=== PATIENT | female | born 1955 | race Caucasian/White ===

== ENCOUNTER 2018-05-17 19:25 | Emergency (ER) | payer OTHER ==
[~2018-05-17] VITALS: Ht 170.2 cm; Wt 81.6 kg
[~2018-05-17 19:25] MED LIST: HYDR1TAB10 PO; IBUP400T18 PO
--- NOTE | 2018-05-17 20:16 | ED.ADGEN ---
Past History Past Medical History: No Pertinent History Past Surgical History: Hysterectomy, Tonsillectomy Alcohol Use: Occasionally Drug Use: None Adult General Chief Complaint Chief Complaint " ... All of sudden... I got really weak... and dizzy... I felt short of breath.. just feel really bad....",," I then started having tingle and numbness in both hand and my feet..."..." I better now..." HPI HPI Patient is a 62 year old female who presents with above hx and complaints of malaise, dyspnea, nausea and and dizziness. She denies any changes in meds, travel, specific ill contacts, intake bad food, or trauma.. Patient is very anxious. No previous history of acute NC or DVT. Patient reports no changes in bowel habits. Patient denies any changes in urination. Patient states she does have a past history of anxiety. Review of Systems Review of Systems Constitutional: Denies fever or chills [] Eyes: Denies change in visual acuity, redness, or eye pain [] HENT: Denies nasal congestion or sore throat [] Respiratory: Complains of dyspnea Cardiovascular: No additional information not addressed in HPI [] GI: Complaints of abdominal pain, nausea, vomiting,. Denies bloody stools or diarrhea [] : Denies dysuria or hematuria [] Musculoskeletal: Denies back pain or joint pain [] Integument: Denies rash or skin lesions [] Neurologic: Complains of headache, complains of generalized weakness Endocrine: Denies polyuria or polydipsia [] All other systems were reviewed and found to be within normal limits, except as documented in this note. Family History Family History Noncontributory Current Medications Current Medications Current Medications Medications (Trade) Dose Ordered Sig/[place] Start Time Stop Time Status Last Admin Dose Admin Aspirin (Ching Aspirin) 325 mg 1X ONCE 05/17/18 23:45 05/18/18 00:02 DC 05/17/18 23:48 325 MG See nursing for home medications Allergies Allergies Allergies Coded Allergies Type Severity Reaction Last Updated Verified NSAIDS (Non-Steroidal Anti-Inflamma Allergy Unknown 05/17/18 Yes Physical Exam Physical Exam Constitutional: Moderate distress, non-toxic appearance. [] HENT: Normocephalic, atraumatic, bilateral external ears normal, oropharynx moist, no oral exudates, nose normal. [] Eyes: PERRLA, EOMI, conjunctiva normal, no discharge. [] Neck: Normal range of motion, no tenderness, supple, no stridor. [] Cardiovascular:Heart rate regular rhythm, no murmur [] Lungs & Thorax: Bilateral breath sounds equal apex auscultation [] Abdomen: Bowel sounds normal, soft, no tenderness, no masses, no pulsatile masses. Distended. Old surgery scar. Skin: Warm, dry, no erythema, no rash. [] Back: No tenderness, no CVA tenderness. [] Extremities: No tenderness, no cyanosis, no clubbing, ROM intact, no edema. [] No cording appreciated Neurologic: Alert and oriented X 3, normal motor function, normal sensory function, no focal deficits noted. []DTRs are +2 at patella and brachial. 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 No drift. Ambulatory without problems. Psychologic: Affect anxious, judgement normal, mood normal. [] Current Patient Data Vital Signs Vital Signs Date Time Temp Pulse Resp B/P (MAP) Pulse Ox O2 Delivery O2 Flow Rate FiO2 05/18/18 01:00 98.3 77 13 145/74 (97) 96 Room Air Lab Results Laboratory Tests Test 05/17/18 20:33 05/18/18 00:02 White Blood Count 6.3 x10^3/uL (4.0-11.0) Red Blood Count 4.98 x10^6/uL (3.50-5.40) Hemoglobin 14.6 g/dL (12.0-15.5) Hematocrit 43.0 % (36.0-47.0) Mean Corpuscular Volume 86 fL (79-100) Mean Corpuscular Hemoglobin 29 pg (25-35) Mean Corpuscular Hemoglobin Concent 34 g/dL (31-37) Red Cell Distribution Width 14.1 % (11.5-14.5) Platelet Count 380 x10^3/uL (140-400) Neutrophils (%) (Auto) 50 % (31-73) Lymphocytes (%) (Auto) 39 % (24-48) Monocytes (%) (Auto) 7 % (0-9) Eosinophils (%) (Auto) 3 % (0-3) Basophils (%) (Auto) 0 % (0-3) Neutrophils # (Auto) 3.2 x10^3uL (1.8-7.7) Lymphocytes # (Auto) 2.5 x10^3/uL (1.0-4.8) Monocytes # (Auto) 0.5 x10^3/uL (0.0-1.1) Eosinophils # (Auto) 0.2 x10^3/uL (0.0-0.7) Basophils # (Auto) 0.0 x10^3/uL (0.0-0.2) Prothrombin Time 9.5 SEC (9.4-11.4) Prothrombin Time INR 0.9 (0.9-1.1) PTT 22 SEC (23-33) L D-Dimer (June) 0.43 mg/L (0.00-0.50) Sodium Level 143 mmol/L (136-145) Potassium Level 4.0 mmol/L (3.5-5.1) Chloride Level 107 mmol/L (98-107) Carbon Dioxide Level 28 mmol/L (21-32) Anion Gap 8 (6-14) Blood Urea Nitrogen 10 mg/dL (7-20) Creatinine 0.9 mg/dL (0.6-1.0) Estimated GFR (Cockcroft-Gault) 63.0 Glucose Level 134 mg/dL (70-99) H Calcium Level 9.0 mg/dL (8.5-10.1) Troponin I Quantitative < 0.017 ng/mL (0-0.055) YC-Awf-J-Type Natriuretic Peptide 65 pg/mL (0-124) POC Troponin I 0.00 ng/ml (<0.08) EKG EKG My interpretation of EKG shows sinus rhythm at 85 bpm. There is some anterior septal contour changes. But no findings acute STEMI of contralateral changes. EKG my interpretation shows a sinus rhythm at 75 bpm. No acute morphology changes from prior EKG[] Radiology/Procedures Radiology/Procedures My interpretation of acute abdomen film shows no free air in the diaphragm. No acute cardiopulmonary findings. Abdomen film shows increased stool in colon. Some mild degenerative joint changes.[] My interpretation CT of head shows no shift, mass, edema, bleed, or fracture. Does have generalized atrophy. See formal report when available Course & Med Decision Making Course & Med Decision Making Pertinent Labs and Imaging studies reviewed. (See chart for details) Discussed options for further evaluation of patient patient declines admission at this time. Patient states she may have had anxiety episode. Patient will follow-up with her primary care. Patient return if any concerns. [] Final Impression Final Impression 1. Suspect hyperventilation. 2. History of anxiety 3. Hx. of [place] 4. Dizzy Dragon Disclaimer Dragon Disclaimer This electronic medical record was generated, in whole or in part, using a voice recognition dictation system. MARIELLE BOLIVAR MD May 17, 2018 20:16
--- NOTE | 2018-05-17 20:31 | RAD ---
CT scan of the head without contrast 05/17/2018 Clinical History: Numbness and tingling bilaterally since earlier today. Weakness. Technique: Unenhanced, contiguous, 5 mm axial sections were obtained through the head. One or more of the following individualized dose reduction techniques were utilized for this study: 1. Automated exposure control. 2. Adjustment of the mA and/or kV according to patient size. 3. Use of iterative reconstruction technique. Findings: No previous imaging studies are available for comparison. There is mild generalized parenchymal atrophy. No acute parenchymal abnormality is seen. No extra-axial fluid collection is noted. No skull fracture is seen. Impression: No acute intracranial abnormality is seen. Electronically signed by: Yazan Barron MD (05/17/2018 8:27 PM) [facility]
[2018-05-17 21:10] LABS: BASO % 0 % (0-3); EOS # 0.2 x10^3/uL (0.0-0.7); EOS % 3 % (0-3); HEMOGLOBIN 14.6 g/dL (12.0-15.5); LYMPH # 2.5 x10^3/uL (1.0-4.8); LYMPH % 39 % (24-48); MEAN CORPUSCULAR HEMOGLOBIN 29 pg (25-35); MEAN CORPUSCULAR HGB CONC 34 g/dL (31-37); MEAN CORPUSCULAR VOLUME 86 fL (79-100); MONO # 0.5 x10^3/uL (0.0-1.1); MONO % 7 % (0-9); NEUT # 3.2 x10^3uL (1.8-7.7); NEUT % 50 % (31-73); PLATELET COUNT 380 x10^3/uL (140-400); RED BLOOD COUNT 4.98 x10^6/uL (3.50-5.40); RED CELL DISTRIBUTION WIDTH 14.1 % (11.5-14.5); WHITE BLOOD COUNT 6.3 x10^3/uL (4.0-11.0)
[2018-05-17 21:24] LABS: CREATININE 0.9 mg/dL (0.6-1.0)
--- NOTE | 2018-05-17 22:25 | EKG ---
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
[2018-05-17] MEDS ORDERED: ONDA8TAB12 PO (23:43)
[2018-05-17] MEDS ORDERED: ASPIRIN 325 MG TABLET PO ONE (23:45)
--- NOTE | 2018-05-18 00:08 | RAD ---
Acute abdominal series to include a PA chest radiograph 05/17/2018 Clinical History: Abdominal pain. A PA digital radiograph of the chest was obtained. Supine and erect AP digital radiographs of the abdomen/pelvis were obtained. No previous studies are available for comparison. The cardiac and mediastinal silhouettes are within normal limits in size and configuration. No pulmonary infiltrate is seen. No pleural effusion or pneumothorax is noted. The abdominal bowel gas pattern is nonobstructive. A moderate amount stool seen throughout the colon. There is no evidence of free air. No radiopaque calculus is seen. The osseous structures are grossly intact. Impression: Nonobstructive bowel gas pattern. Electronically signed by: Yazan Barron MD (05/18/2018 12:04 AM) [facility]
[2018-05-18 01:00] VITALS: BP 145/74
--- NOTE | 2018-05-18 01:27 | EKG ---
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
== END 2018-05-18 01:00 | disposition home or self-care (01) ==
LOC: ER 19:25
DX: R42 Dizziness and giddiness (principal); R06.00 Dyspnea, unspecified; R53.81 Other malaise; Z88.6 Allergy status to analgesic agent
CPT/HCPCS: 36415; 70450; 74022; 80048; 83880; 84484; 85025; 85379; 85610; 85730; 93005; 99285-25

== ENCOUNTER 2019-02-26 14:56 | Emergency (ER) | payer OTHER, MEDICARE ==
[~2019-02-26] VITALS: Ht 170.2 cm; Wt 77.1 kg
[~2019-02-26 14:56] MED LIST changes: +ONDA8TAB12 PO
[2019-02-26] MEDS ORDERED: DEXAMETHASONE 4 MG TABLET PO ONE (15:15)
[2019-02-26] MEDS ORDERED: ORPHENADRINE CITRATE 60 MG/2 ML VIAL. IM ONE (15:15)
[2019-02-26] MEDS ORDERED: ORPH-16 PO (15:16)
[2019-02-26] MEDS ORDERED: PRED20TA PO (15:16)
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
[2019-02-26 15:30] VITALS: BP 191/92
== END 2019-02-26 15:35 | disposition home or self-care (01) ==
LOC: ER 14:56
DX: S16.1XXA Strain of muscle, fascia and tendon at neck level, initial encounter (principal); M54.6 Pain in thoracic spine; R51 Headache; V43.52XA Car driver injured in collision with other type car in traffic accident, initial encounter; Y93.I9 Activity, other involving external motion; Y92.488 Other paved roadways as the place of occurrence of the external cause; Y99.8 Other external cause status; Z88.6 Allergy status to analgesic agent
CPT/HCPCS: 96372; 99283; J2360; J8540

== ENCOUNTER → 2020-03-23 | Outpatient (CLI) | payer MEDICARE, OTHER ==
[~2020-03-23] MED LIST changes: +ORPH-16 PO; +PRED20TA PO
--- NOTE | 2020-03-23 11:20 | RAD ---
3 views the right hand without comparison for middle trigger finger. FINDINGS: There is no fracture, dislocation, or acute osseous abnormality identified. There is moderate osteoarthritis involving the first carpometacarpal joint. Interphalangeal joints are normal. No radiopaque foreign bodies. IMPRESSION: 1. No acute osseous abnormality. 2. 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 Electronically signed by: Lobo Espinosa MD (03/23/2020 11:17 AM) [id number]
--- NOTE | 2020-03-23 11:21 | RAD ---
3 views the bilateral knees without comparison for pain. FINDINGS: There is no fracture or acute osseous abnormality identified on either knee. There is very mild medial compartmental osteoarthritis bilaterally. No radiopaque foreign bodies. IMPRESSION: 1. No acute osseous abnormality of either knee. Electronically signed by: Lobo Espinosa MD (03/23/2020 11:19 AM) [id number]
== END ==
LOC: RAD 09:36
PROVIDERS: ATTEND Orthopaedic Surgery Sports Medicine
DX: M18.9 Osteoarthritis of first carpometacarpal joint, unspecified (principal); M25.561 Pain in right knee; M25.562 Pain in left knee
CPT/HCPCS: 73120; 73560; 73565